=== PATIENT | male | born 1995 | race Caucasian/White ===

== ENCOUNTER 2018-08-06 19:38 | Emergency (ER) | payer OTHER ==
[~2018-08-06] VITALS: Ht 177.8 cm; Wt 99.5 kg
[2018-08-06 19:40] VITALS: BP 126/91
[2018-08-06 20:07] VITALS: BP 120/80
== END 2018-08-06 20:07 ==
LOC: MED 19:38
DX: R03.0 Elevated blood-pressure reading, without diagnosis of hypertension (principal); Z02.89 Encounter for other administrative examinations; V89.2XXA Person injured in unspecified motor-vehicle accident, traffic, initial encounter; Y93.89 Activity, other specified; Y92.89 Other specified places as the place of occurrence of the external cause; Y99.8 Other external cause status
CPT/HCPCS: 99283

== ENCOUNTER 2018-11-11 19:07 | Emergency (ER) | payer OTHER ==
[~2018-11-11] VITALS: Ht 177.8 cm; Wt 104.3 kg
[2018-11-11 19:15] VITALS: BP 144/68
--- NOTE | 2018-11-11 19:20 | NUR ---
PATIENT AMBULATED TO ER BED 8.
--- NOTE | 2018-11-11 19:27 | NUR ---
PT TO ED WITH C/O ANXIETY S/P ALCOHOL DETOX. PT REPORTS TAKING LIBRIUM GIVEN AT [facility] AND STILL FEELS ANXIETY. DENIES DRUG OR ALCOHOL USE FOR 3 DAYS. PT PLACED INTO BED, RADHA ROBIN. PMH--DENIES RX--DENIES
--- NOTE | 2018-11-11 19:51 | NUR ---
Dr. Deleon evaluating patient at bedside.
[2018-11-11 20:08] VITALS: BP 144/68
--- NOTE | 2018-11-11 20:09 | NUR ---
Patient discharged with v/s stable. Written and verbal after care instructions given and explained. Patient alert, oriented and verbalized understanding of instructions. Ambulatory with steady gait. All questions addressed prior to discharge. ID band removed. Patient advised to follow up with PMD. Rx of LIBRIUM given. Patient educated on indication of medication including possible reaction and side effects. Opportunity to ask questions provided and answered.
== END 2018-11-11 20:09 | disposition home or self-care (01) ==
LOC: MED 19:07
DX: F41.9 Anxiety disorder, unspecified (principal)
CPT/HCPCS: 99283